=== PATIENT | female | born 1990 | race African-American/Black ===

== ENCOUNTER 2016-07-23 17:55 | Emergency (ER) | payer MEDICAID ==
[~2016-07-23] VITALS: Ht 167.6 cm; Wt 126.5 kg
[2016-07-23 19:51] VITALS: BP 132/79
== END 2016-07-23 19:51 | disposition home or self-care (01) ==
LOC: ED 17:55
DX: L60.0 Ingrowing nail (principal); N39.0 Urinary tract infection, site not specified
CPT/HCPCS: J2001